=== PATIENT | male | born 1965 | race Caucasian/White ===

== ENCOUNTER → 2016-09-06 07:42 | Outpatient (CLI) | payer BC ==
[2016-08-12 11:29] VITALS: BMI 34.4
[~2016-09-06 07:42] MED LIST: BYSTOLIC10 MG PO; HYDROCODONE-APA1 TAB PO; LOPID600 MG PO; LUNESTA3 MG PO; MEDROL DOSE PACK4 MG PO; NORVASC10 MG PO; OMEPRAZOLE40 MG PO; TESTOSTERON200 MG/ML IM
== END | disposition home or self-care (01) ==
LOC: D.RAD 07:42
DX: Z48.811 Encounter for surgical aftercare following surgery on the nervous system (principal)

== ENCOUNTER 2018-08-26 07:53 | Emergency (ER) | payer BC ==
[~2018-08-26] VITALS: Ht 170.2 cm; Wt 90.9 kg
[2018-08-26 07:54] VITALS: Ht 170.2 cm; Wt 90.9 kg
[2018-08-26] MEDS ORDERED: FERROUS SULFAT325 MG PO (07:57)
[2018-08-26] MEDS ORDERED: COZAAR100 MG PO (07:57)
[2018-08-26 08:40] LABS: BASOPHILS 0.8 % (0-2); EOSINOPHILS 3.8 % (0-7); HEMATOCRIT 55.9 % (42.0-54.0); HEMOGLOBIN 19.3 g/dL (13.5-17.5); IMMATURE GRANULOCYTES 1.5 % (0-5); LYMPHOCYTES 16.3 % (15-50); MCH 30.5 pg (26.0-34.0); MCHC 34.5 g/dL (31.0-37.0); MCV 88.4 fL (80.0-100.0); MONOCYTES 8.9 % (2-11); NEUTROPHILS 68.7 % (40-80); RBC 6.32 10x6/uL (4.20-6.10); RDW 14.5 % (11.5-14.5); WBC 6.6 10x3/uL (4.8-10.8)
[2018-08-26 08:41] LABS: PLATELET COUNT 209 10x3/uL (130-400)
[2018-08-26 09:05] LABS: ALBUMIN 3.7 g/dL (3.4-5.0); ALKALINE PHOSPHATASE 58 U/L (46-116); ALT (SGPT) 71 U/L (10-68); BILIRUBIN - TOTAL 0.69 mg/dL (0.2-1.3); CALC OSMOLALITY 282 mosm/kg (275-300); CALCIUM 8.8 mg/dL (8.5-10.1); CARBON DIOXIDE 27.1 mmol/L (21.0-32.0); CHLORIDE - SERUM 102 mmol/L (98-107); CREATININE - SERUM 1.1 mg/dL (0.6-1.3); GLUCOSE 116 mg/dL (74-106); POTASSIUM - SERUM 4.1 mmol/L (3.5-5.1); PROTEIN - SERUM 6.7 g/dL (6.4-8.2); SODIUM 139 mmol/L (136-145); UREA NITROGEN 24 mg/dL (7-18); eGFR NON AFRICAN AMERICAN 75 mL/min (90-120)
[2018-08-26 09:13] LABS: LIPASE 168 U/L (73-393); MAGNESIUM - SERUM 1.8 mg/dL (1.8-2.4)
[2018-08-26 09:21] LABS: PRO BNP 4 pg/mL (0-125); TROPONIN-I < 0.017 ng/mL (0.000-0.060)
[2018-08-26 09:58] VITALS: BP 147/93
== END 2018-08-26 09:59 | disposition home or self-care (01) ==
LOC: D.ER 07:53
PROVIDERS: Family Medicine
DX: I10 Essential (primary) hypertension (principal); R55 Syncope and collapse; D75.1 Secondary polycythemia; R20.2 Paresthesia of skin; R51 Headache